=== PATIENT | male | born 1950 ===

== ENCOUNTER → 2023-10-08 | Day surgery (SDC) | payer OTHER ==
[2023-10-04 10:35] LABS: HEMATOCRIT 39.2 % (39.0-48.0); HEMOGLOBIN 13.4 g/dL (13-16.00); MEAN CELL VOLUME 90.2 fL (80.0-100.00); MEAN CORPUSCULAR HEMOGLOBIN 30.9 pg (27.00-32.0); MEAN CORPUSCULAR HGB CONC 34.2 g/dl (32.0-36.0); PLATELET COUNT 395 K/uL (150-450); RED BLOOD COUNT 4.35 M/uL (4.00-6.00); RED CELL DISTRIBUTION WIDTH 13.9 % (11.5-14.5)
[2023-10-04 10:50] LABS: URINE APPEARANCE Clear; URINE BILIRRUBIN Negative (NEGATIVE); URINE BLOOD Negative; URINE COLOR Yellow; URINE GLUCOSE Negative (NEGATIVE); URINE LEUKOCYTE Negative; URINE NITRATE Negative; URINE PROTEIN Negative (NEGATIVE); URINE UROBILINOGEN 0.2 E.U./dl
[2023-10-04 11:05] LABS: INR 0.97; PARTIAL THROMBOPLASTIN TIME 27.6 SECONDS (22.0-34.0); PROTHROMBIN TIME 10.2 SECONDS (9.0-11.5)
[2023-10-04 11:23] LABS: URINE BACTERIA 1.2 uL (0.0-1933); URINE WBC 0 uL (0.0-23.2)
[2023-10-04 11:51] LABS: ALBUMIN 4.1 gm/dL (3.4-5.0); BILIRUBIN TOTAL 0.5 mg/dL (0.3-1.2); CALCIUM 9.8 mg/dL (8.5-10.1); CREATININE SERUM 1.49 mg/dL (0.70-1.30); GFR 45.98; GLOBULINA 3.6 G/DL (2.4-3.5); PHOSPHOROUS 3.5 mg/dL (2.5-4.9); POTASSIUM 4.01 mEq/L (3.5-5.1); TOTAL PROTEIN 7.7 gm/dL (6.4-8.2)
[~2023-10-08] VITALS: Ht 165.1 cm; Wt 68.0 kg
[~2023-10-08] MED LIST: ACETAMINOPHEN500 M2 PO; CEFTRIAXONE SODIUM 2,000 MG VIAL IV ONE; CEFTRIAXONE SODIUM 2,000 MG VIAL ONE; CHILDREN'S ASPI81 MG PO; COLACE100 MG PO; DIBUCAINE 15 GM OINT..GM. TUBE ONE; DIBUCAINE 15 GM OINT..GM. TUBE RECTAL ONE; DIOVAN320 MG PO; HEMOSTATIC MATRIX 1 KIT KIT TOP ONE; LIDOCAINE HCL 1%/Epi 20ML VIAL IJ ONE; METRONIDAZOLE/SODIUM CHLORIDE 500 MG/100 ML PIGGYBACK IV ONE; NEURONTIN300 MG PO; NIFEDIPINE20 MG PO; PEPCID AC20 MG PO; POVIDONE-IODINE 118 ML BOTT TOP ONE; ROSUVASTATIN CA20 MG PO; XARELTO2.5 MG PO
== END | disposition home or self-care (01) ==
LOC: ADM 09-30 08:45 → CIR.AMB 09:12
PROVIDERS: ATTEND Surgery
DX: D12.8 Benign neoplasm of rectum (principal); K62.82 Dysplasia of anus; K62.89 Other specified diseases of anus and rectum; E78.5 Hyperlipidemia, unspecified; I10 Essential (primary) hypertension

== ENCOUNTER 2024-04-28 06:32 | Day surgery (SDC) | payer OTHER ==
[2024-04-25 13:27] LABS: HEMATOCRIT 37.4 % (39.0-48.0); HEMOGLOBIN 13.2 g/dL (13-16.00); MEAN CELL VOLUME 90.9 fL (80.0-100.00); MEAN CORPUSCULAR HEMOGLOBIN 32.2 pg (27.00-32.0); MEAN CORPUSCULAR HGB CONC 35.4 g/dl (32.0-36.0); PLATELET COUNT 366 K/uL (150-450); RED BLOOD COUNT 4.11 M/uL (4.00-6.00); RED CELL DISTRIBUTION WIDTH 13.3 % (11.5-14.5)
[2024-04-25 13:50] LABS: INR 1.01
[~2024-04-28 06:32] MED LIST changes: -CEFTRIAXONE SODIUM 2,000 MG VIAL IV ONE; -CEFTRIAXONE SODIUM 2,000 MG VIAL ONE; -DIBUCAINE 15 GM OINT..GM. TUBE ONE; -DIBUCAINE 15 GM OINT..GM. TUBE RECTAL ONE; -HEMOSTATIC MATRIX 1 KIT KIT TOP ONE; -LIDOCAINE HCL 1%/Epi 20ML VIAL IJ ONE; -METRONIDAZOLE/SODIUM CHLORIDE 500 MG/100 ML PIGGYBACK IV ONE; -POVIDONE-IODINE 118 ML BOTT TOP ONE
[2024-04-28] MEDS ORDERED: MIDAZOLAM HCL 2 MG/2 ML VIAL IV ONE (09:45)
[2024-04-28] MEDS ORDERED: fentaNYL CITRATE 50 MCG/ML AMPUL IV PUSH ONE (09:45)
[2024-04-28] MEDS ORDERED: DIPHENHYDRAMINE HCL 50 MG/ML VIAL 1ML IV ONE (09:45)
== END 2024-04-28 11:00 | disposition home or self-care (01) ==
LOC: AMB-ENDOS 06:32
PROVIDERS: ATTEND Surgery
DX: K63.5 Polyp of colon (principal); K57.30 Diverticulosis of large intestine without perforation or abscess without bleeding